=== PATIENT | female | born 1960 | race Caucasian/White ===

== ENCOUNTER → 2016-06-19 | Outpatient (CLI) | payer OTHER ==
[~2016-06-19] MED LIST: ASPEC81 PO; GLC500 PO; GLIM4TAB2 PO; LIRA18IN SC; LISI-725 PO; NRV/10 PO; SIMV10TA2 PO
== END | disposition home or self-care (01) ==
LOC: C.PAPS 15:06
PROVIDERS: ATTEND Family Medicine
DX: Z12.4 Encounter for screening for malignant neoplasm of cervix (principal)